=== PATIENT | female | born 1940 | race Caucasian/White ===

== ENCOUNTER → 2018-09-05 | Outpatient (CLI) | payer OTHER ==
[2018-09-05 08:38] LABS: HEMATOCRIT 42.8 % (37.0-47.0); HEMOGLOBIN 14.3 gm/dL (12.0-15.0); MCH 29.2 pg (26.0-34.0); MCHC 33.4 g/dL (28.0-37.0); MCV 87.4 fL (80.0-100.0); RBC 4.89 mil/uL (4.20-5.00); RDW 13.7 % (10.5-14.5); WBC 7.2 thou/uL (4.0-11.0)
[2018-09-05 09:04] LABS: ALBUMIN 4.1 g/dL (3.4-5.0); CALCIUM 9.4 mg/dL (8.5-10.1); CREATININE 0.9 mg/dL (0.6-1.0); POTASSIUM 3.8 mmol/L (3.5-5.1); TOTAL BILIRUBIN 0.4 mg/dL (<0.1-1.0); TOTAL PROTEIN 7.2 g/dL (6.4-8.2)
== END ==
LOC: CAT 07:49
PROVIDERS: Internal Medicine Cardiovascular Disease
DX: I48.91 Unspecified atrial fibrillation (principal); I25.10 Atherosclerotic heart disease of native coronary artery without angina pectoris; M47.814 Spondylosis without myelopathy or radiculopathy, thoracic region

== ENCOUNTER 2018-09-21 06:28 | Inpatient (IN) | payer OTHER ==
[2018-09-21] VITALS (8 sets, daily range): BP systolic 107–146; BP diastolic 43–60
[~2018-09-21] VITALS: Ht 165.1 cm; Wt 97.5 kg
[2018-09-21 07:08] LABS: ABSOLUTE NEUTROPHILS 4.1 thou/uL (1.4-8.2); BASOPHILS 0.7 % (0.0-2.0); EOSINOPHILS 3.7 % (0.0-3.0); HEMATOCRIT 40.7 % (37.0-47.0); HEMOGLOBIN 13.6 gm/dL (12.0-15.0); LYMPHOCYTES 28.1 % (24.0-44.0); MCH 29.3 pg (26.0-34.0); MCHC 33.5 g/dL (28.0-37.0); MCV 87.6 fL (80.0-100.0); MONOCYTES 11.4 % (1.0-8.0); PLATELET COUNT 236 thou/uL (150-400); POLYS 56.1 % (36.0-66.0); RBC 4.65 mil/uL (4.20-5.00); RDW 13.4 % (10.5-14.5); WBC 7.4 thou/uL (4.0-11.0)
[2018-09-21 07:25] LABS: CALCIUM 9.4 mg/dL (8.5-10.1); CREATININE 0.8 mg/dL (0.6-1.0)
[2018-09-21 07:28] LABS: APTT 27.3 Seconds (24.5-32.8); PROTIME 10.6 Seconds (9.3-11.4)
[2018-09-21 07:31] LABS: ALBUMIN 3.8 g/dL (3.4-5.0); TOTAL BILIRUBIN 0.4 mg/dL (<0.1-1.0); TOTAL PROTEIN 7.2 g/dL (6.4-8.2)
[2018-09-21] MEDS ORDERED: BREO ELLIPTA 11 EACH INH (07:35)
[2018-09-21] MEDS ORDERED: FISH OIL 1,001000 M2 PO (07:36)
[2018-09-21] MEDS ORDERED: LASIX 20 MG TAB20 MG PO (07:37)
[2018-09-21] MEDS ORDERED: SYNTHROID100 MC1 PO (07:38)
[2018-09-21] MEDS ORDERED: ATORVASTATIN CA40 MG PO (07:40)
[2018-09-21] MEDS ORDERED: MAGOX 400400 MG PO (07:44)
[2018-09-21] MEDS ORDERED: XARELTO20 MG PO (07:45)
[2018-09-21] MEDS ORDERED: NIACIN 500 MG500 M1 PO (07:49)
[2018-09-21] MEDS ORDERED: KLOR-CON 1010 MEQ PO (07:52)
[2018-09-21] MEDS ORDERED: ZANTAC 150MG T150 MG PO (07:52)
[2018-09-21] MEDS ORDERED: SINGULAIR 10 MG10 M1 PO (07:53)
[2018-09-21] MEDS ORDERED: TRANXENE T-TAB7.5 MG PO (07:54)
--- NOTE | 2018-09-21 15:41 | NUR ---
PT ARRIVED TO UNIT AT 1205. PT IS A&OX4. FAMILY MEMEBERS PRESENT IN ROOM. PT INSTRUCTED ON IMPORTANCE OF STRICT BED REST FOR 6 HOURS. BED REST EXPIRES AT 1630. PT ORDERED A SANDWICH TRAY FOR LUNCH. PT HAS R GROIN SITE. SITE REMAINS SOFT, NO HEMATOMA PRESENT, DRESSING C,D,I. PT STATES SHE HAS SOME "DISCOMFORT" AND SOME "TIGHTNESS" ACROSS HER CHEST. PT STATES IT STARTED IN THE EP LAB AND THAT SHE LET THE STAFF DOWN THERE KNOW. AN EKG WAS PERFORMED AND THE PHYSICIAN READ THE RESULTS AND DISCUSSED WITH PATIENT. PT INSTRUCTED TO LET NURSING KNOW IF THIS "DISCOMFORT" OR "TIGHTNESS" GETS ANY WORSE. CURRENTLY PT HAS NOT HAD ANY NEW COMPLAINTS TO REPORT. WILL CONTINUE TO CLOSELY MONITOR PT.
[2018-09-22 03:33] VITALS: BP 107/47
[2018-09-22 07:15] VITALS: BP 104/39
--- NOTE | 2018-09-22 08:42 | EKG ---
[address] [address] ELECTROCARDIOGRAM REPORT Name: TANI GRANT Room #: 212-P [facility]#: [id number] ������������������ Admission: 09/21/18 ������������������ Attend Phys: Pranay Bethea MD Discharge: ������������������ Date of : 42 Report #: [id number] ����������������������������������������������������������������� [id number] THIS REPORT FOR: //name// [facility] Test Date: 2018-09-21 Test Time: 11:15:26 Pat Name: TANI GRANT Department: Room: [facility] Gender: F Wool Shearer: MIKE : 1940 Requested By: Pranay Bethea Order Number: [id number] MD: Pranay Bethea Measurements Intervals [place] Rate: 54 P: 39 WV: 189 QRS: -45 QRSD: 114 T: -2 QT: 467 QTc: 443 Interpretive Statements Sinus rhythm Left anterior fascicular block Abnormal R-wave progression, late transition No previous ECG available for comparison Electronically Signed On 09-22-2018 8:42:44 CDT by Pranay Bethea [email or web address] ��������������������������������������������� <ELECTRONICALLY SIGNED> ���������������������������������������� By: Pranay Bethea MD ��������������������������������������������� 09/22/18 0842 [id number] [id number] Pranay Bethea MD /[facility]
--- NOTE | 2018-09-22 09:09 | P ---
[facility] [place] [address] PROCEDURE REPORT Name: DESIREE GRANTMILO Som Room #: 212-P [facility] Jason#: [id number] Admission: 09/21/18 ������������������ Attend Phys: Pranay Bethea MD Discharge: ������������������ Date of : 42 Report #: [id number] THIS REPORT FOR: //name// CC: [facility] physician/PCP Pranay Bethea PREOPERATIVE DIAGNOSES: 1. Paroxysmal atrial fibrillation. 2. Sick sinus syndrome. POSTOPERATIVE DIAGNOSES: 1. Paroxysmal atrial fibrillation. 2. Sick sinus syndrome. HISTORY OF PRESENT ILLNESS: The patient is a 78-year-old female with a history of paroxysmal atrial fibrillation, atrial tachycardia as well as sick sinus syndrome, who cannot tolerate rate control or antiarrhythmic drugs and is here for an ablation. PROCEDURES PERFORMED: 1. Atrial fibrillation ablation, CPT code 44520. 2. 3D mapping, CPT code 81094. 3. Intracardiac echo, CPT code 88614. ANESTHESIA: The patient underwent general anesthesia, with no anesthesia-related complications. DESCRIPTION OF PROCEDURE: The patient underwent informed consent. We discussed the details of the procedure including the risks, which include, but are not limited to bleeding, vascular damage, stroke, MA as well as damage to the [place] conduction system, requiring permanent pacemaker. She understood these risks and is willing to proceed. The patient was brought to the EP laboratory in a fasting and sedated state, prepped and draped in a sterile fashion. I then obtained access to the right femoral vein x 3, placing an 8, 7 and 9-Ghanaian short sheath in the right femoral vein using the modified Seldinger technique. Next, I placed an ICE catheter and a decapolar catheter into the heart and obtained access to the coronary sinus with ease. Using intracardiac ultrasound, I created a 3D geometry of the left atrium, which was merged with the cardiac CT scan. The patient was then systemically heparinized. Using an SL1 sheath and a [place] needle, a transseptal was performed. I was able to get the wire into the left atrium, but I could not advance the SL1 into the left atrium. Therefore, I exchanged for the cryo sheath and this was able to cross into the left atrium with ease. Next, a Lasso catheter was placed in the left atrium and a pre-ablation voltage map was created showing activation of the left common and [facility] [address] [place] [address] PROCEDURE REPORT Name: TANI GRANT Room #: 212-P [facility] Elisabeth Gomez#: [id number] Admission: 09/21/18 ������������������ Attend Phys: Pranay Bethea MD Discharge: ������������������ Date of : 42 Report #: [id number] the two right pulmonary veins. Next, the cryoballoon was placed into the left atrium and I started by isolating the left common. I initially placed my balloon into the upper branch of the left common and I performed 2 freezes, but came off after about 30 seconds because the temperatures were inadequate. A third freeze was performed. Temperatures were -31 degrees and again the vein did not isolate. Therefore, I placed the balloon and sub-selected the left inferior branch of the common ostium. From this position, we got much better temperatures. During freeze #4, the vein isolated within 70 seconds. The fourth freeze was of 4 minutes' duration. I performed an additional freeze of 3 minutes' duration and then the left common ostium was interrogated and found to be isolated. I then turned my attention to the right superior pulmonary vein. I could not see signals adequately while isolating this vein. I did perform phrenic nerve pacing and there was never any phrenic nerve compromise. I performed two 4-minute freezes in this vein and the vein was isolated. I turned my attention to the right inferior pulmonary vein and I performed a 4-minute and a 3-minute freeze. It appeared that this vein isolated within 30 seconds of the first freeze. Post-ablation, I placed my Lasso catheter back in the left atrium. I created a repeat voltage map, which showed that we had created a wide circumferential ablation of the pulmonary veins with evidence of isolation. Post-ablation, we did an EP study with evidence of AV block at 330 milliseconds and atrial ERP noted at 210 milliseconds at a 500-millisecond basic drive cycle length. Pre-ablation, the patient was in sinus rhythm with sinus cycle length of 1070 milliseconds, RI interval 200 milliseconds, QRS duration 90 milliseconds, QT interval 430 milliseconds, AH interval 105 milliseconds and HV interval 40 milliseconds. Post-ablation, using intracardiac ultrasound, I verified that there was no pericardial effusion. As such, all catheters and sheaths were pulled and hemostasis was obtained and the patient awoke neurologically and hemodynamically intact. CONCLUSIONS: 1. Successful AFib ablation with isolation of the 4 pulmonary veins. 2. Normal EP study, with no other inducible arrhythmias. ��������������������������������������������� <ELECTRONICALLY SIGNED> ���������������������������������������� By: Pranay Bethea MD ��������������������������������������������� 09/22/18 0909 [id number] [id number] Pranay Bethea MD /nt
[2018-09-22 12:57] VITALS: BP 104/39
--- NOTE | 2018-09-22 13:15 | NUR ---
DISCHARGED TO HOME. AAOX4 VERY PLEASANT AND COOPERTIVE. DENIES PAIN. GOOD APPETITE. C/O FEELING CONSTIPATED MILK AND MAG GIVEN. RIGHT GROIN SOFT WITHOUT DRAINAGE.
== END 2018-09-22 14:54 | disposition home or self-care (01) | DRG 274 ==
LOC: CATH 06:28 → 2N 12:04 → CATH 12:04 → 2N 12:04 → CATH 14:10 → 2N 09-22 10:34
PROVIDERS: ADMIT Internal Medicine Cardiovascular Disease
PROC: 02583ZZ Destruction of Conduction Mechanism, Percutaneous Approach (ICD-10-PCS; principal; 2018-09-22)
PROC: B245ZZZ Ultrasonography of Left Heart (ICD-10-PCS; principal; 2018-09-22)
PROC: 4A023FZ Measurement of Cardiac Rhythm, Percutaneous Approach (ICD-10-PCS; principal; 2018-09-22)
PROC: 02K83ZZ Map Conduction Mechanism, Percutaneous Approach (ICD-10-PCS; principal; 2018-09-22)
PROC: 4A0234Z Measurement of Cardiac Electrical Activity, Percutaneous Approach (ICD-10-PCS; principal; 2018-09-22)
DX: I48.0 Paroxysmal atrial fibrillation (principal); I49.5 Sick sinus syndrome; G47.33 Obstructive sleep apnea (adult) (pediatric); E78.5 Hyperlipidemia, unspecified; E03.9 Hypothyroidism, unspecified; Z79.899 Other long term (current) drug therapy; Z88.8 Allergy status to other drugs, medicaments and biological substances
CPT/HCPCS: 10797; 62110; 62900; 65020; 70005

== ENCOUNTER → 2019-11-26 | Outpatient (CLI) | payer OTHER ==
[~2019-11-26] MED LIST: ATORVASTATIN CA40 MG PO; BREO ELLIPTA 11 EACH INH; FISH OIL 1,001000 M2 PO; KLOR-CON 1010 MEQ PO; LASIX 20 MG TAB20 MG PO; MAGOX 400400 MG PO; NIACIN 500 MG500 M1 PO; SINGULAIR 10 MG10 M1 PO; SYNTHROID100 MC1 PO; TRANXENE T-TAB7.5 MG PO; XARELTO20 MG PO; ZANTAC 150MG T150 MG PO
== END ==
LOC: SJCVC 11:11
PROVIDERS: ATTEND Internal Medicine Cardiovascular Disease
DX: R94.31 Abnormal electrocardiogram [ECG] [EKG] (principal); I44.4 Left anterior fascicular block; I49.5 Sick sinus syndrome; I48.0 Paroxysmal atrial fibrillation; G47.33 Obstructive sleep apnea (adult) (pediatric); E66.01 Morbid (severe) obesity due to excess calories; Z79.899 Other long term (current) drug therapy; Z87.891 Personal history of nicotine dependence

== ENCOUNTER → 2020-10-01 | Outpatient (CLI) | payer OTHER ==
[~2020-10-01] MED LIST changes: +MAGNESIUM250 M1 PO
== END ==
LOC: SJCVC 09:18
PROVIDERS: ATTEND Internal Medicine Cardiovascular Disease
DX: R06.02 Shortness of breath (principal); E78.5 Hyperlipidemia, unspecified; I48.0 Paroxysmal atrial fibrillation; D68.59 Other primary thrombophilia; I27.20 Pulmonary hypertension, unspecified; G47.33 Obstructive sleep apnea (adult) (pediatric); I49.5 Sick sinus syndrome; I35.1 Nonrheumatic aortic (valve) insufficiency; J45.909 Unspecified asthma, uncomplicated; E03.9 Hypothyroidism, unspecified; Z95.0 Presence of cardiac pacemaker; Z90.710 Acquired absence of both cervix and uterus; Z98.890 Other specified postprocedural states; Z88.8 Allergy status to other drugs, medicaments and biological substances; Z79.899 Other long term (current) drug therapy; Z87.891 Personal history of nicotine dependence

== ENCOUNTER → 2020-10-09 | Outpatient (CLI) | payer OTHER ==
[~2020-10-09] VITALS: Ht 162.6 cm; Wt 106.6 kg
[2020-10-09 07:34] VITALS: BP 126/54
[2020-10-09 07:48] LABS: HEMATOCRIT 40.2 % (37.0-47.0); MCH 28.2 pg (26.0-34.0); MCHC 32.2 g/dL (28.0-37.0); MCV 87.6 fL (80.0-100.0); RBC 4.59 mil/uL (4.20-5.00); RDW 14.8 % (10.5-14.5); WBC 7.9 thou/uL (4.0-11.0)
[2020-10-09 07:53] LABS: CREATININE 0.8 mg/dL (0.6-1.0); POTASSIUM 3.8 mmol/L (3.5-5.1)
--- NOTE | 2020-10-09 18:24 | CATHLAB ---
[facility] [place] [address] INVASIVE PROCEDURE REPORT Name: TANI GRANT Room #: REG JEANNE Gomez#: [id number] Admission: 10/09/20 Attend Phys: Clmeente Jacome MD, Discharge: Date of : 42 Report #: [id number] THIS REPORT FOR: cc: FAM - No family physician/PCP FAM - No family physician/PCP Clemente Jacome MD [facility] ~ APPROVED REPORT Study performed: 10/09/2020 07:32:54 Patient Details The patient is a 80 year-old female Event Personnel Clemente Jacome Strategic Partnership Specialist, Dionte Euceda RN RN, Zuleima Whitney RTR Scrub, Anastacia Thomson Monitor Procedures Performed Art Access - R femoral artery* Eber Access - R femoral vein Right and Left Heart Cath w/or w/o Coronarie [id number] [facility] 39642 Initial Mod Sed Same Phys/QHP Gr5y 309009 34439 Mod Sed Same Phys/QHP Ea 299118 Hemostasis w/ Mynx Indication Chest pain Procedure Narrative The Right Groin^ was infiltrated with subcutaneous anesthesia. A PINNACLE 6FR Sheath #[id number] sheath was inserted into the RFA^. Coronary angiography was performed using coronary diagnostic catheters. The right coronary system was accessed and visualized with a JR4 catheter. The left coronary system was accessed and visualized with a JL4 catheter. The left ventricle was accessed and visualized with a ST PIG catheter. Left ventriculogram was performed in 30 degree projection. The patient tolerated the procedure well and there were no complications associated with the procedure. There was no hematoma. Intraoperative Conscious Sedation Sedation start time: 848 Case end Time: 929 Fentanyl 50 mcg Versed 2 mg Fluoro Time: 2.[address] [facility] [address] [place] [address] INVASIVE PROCEDURE REPORT Name: TANI GRANT [id number] Admission: 10/09/20 Attend Phys: Clemente Jacome, Discharge: Date of : 42 Report #: [id number] Dose: DAP 7364.90 cGycm2 808 mGy Contrast Type and Amount: Omnipaque 95 ml Hemodynamics The right atrial mean pressure is 13 mmHg. The right ventricular pressure is 37/2 mmHg. The pulmonary artery pressure is 34/14 mmHg with a mean of 24 mmHg. The mean pulmonary capillary wedge pressure is 16 mmHg. The aortic pressure is 142/63 mmHg with a mean of 84 mmHg. The left ventricular pressure is 150/5 mmHg with a mean of mmHg. The left ventricular end diastolic pressure is 18 mmHg. The cardiac output using thermo method is 5.10 L/min. The cardiac index using thermo method is 2.43 L/min/m2. Conclusion 1. Successful right heart catheterization with cardiac output by thermodilution. See above hemodynamics. #2 normal left jugular size with systolic function lower limits of normal EF 50 to 55%. #3 abdominal aortogram is tortuous but no definite aneurysm. Appears to be mildly dilated bilateral iliac should evaluate noninvasively. Brisk flow noted #4 left main with mild disease giving rise to LAD and circumflex. #5 the LAD is an eccentric 30% irregularity small distal vessel type I LAD no occlusive disease. #6 circumflex OM nondominant widely patent #7 dominant right coronary with minimal irregularity large dominant system no occlusive disease Recommendations and plan: Continue aggressive risk factor modification. No indication for coronary intervention. Noninvasive reports of significant pulmonary hypertension are not supported normal right-sided heart pressures see above. <ELECTRONICALLY SIGNED> By: Clemente Jacome MD, FACC 10/09/201823 23 23 Clemente Jacome MD, FACC /INF
== END | disposition home or self-care (01) ==
LOC: CATH 06:25
PROVIDERS: ATTEND Internal Medicine Cardiovascular Disease
DX: R07.9 Chest pain, unspecified (principal); I25.10 Atherosclerotic heart disease of native coronary artery without angina pectoris; I48.91 Unspecified atrial fibrillation; E03.9 Hypothyroidism, unspecified; E78.5 Hyperlipidemia, unspecified; J45.909 Unspecified asthma, uncomplicated; G47.33 Obstructive sleep apnea (adult) (pediatric); Z98.890 Other specified postprocedural states; Z79.899 Other long term (current) drug therapy; Z87.891 Personal history of nicotine dependence; Z79.01 Long term (current) use of anticoagulants; Z88.8 Allergy status to other drugs, medicaments and biological substances